=== PATIENT | male | born 1980 | race African-American/Black ===

== ENCOUNTER 2021-08-29 00:07 | Emergency (ER) | payer MEDICAID ==
[~2021-08-29] VITALS: Ht 180.3 cm; Wt 75.7 kg
[2021-08-29] MEDS ORDERED: CLINDAMYCIN 900MG IV 50 ML IV ONE (02:30)
[2021-08-29] MEDS ORDERED: SODIUM CHLORIDE 0.9% 1,000 ML IV ONE (02:45)
[2021-08-29] MEDS ORDERED: KETOROLAC TROMETH 30 MG/ML 1ML VIAL IV ONE (04:00)
[2021-08-29 04:58] LABS: Basophils # (auto) 0.1 10 ^3/uL (0-0.2); Basophils % (auto) 0.6 % (0.0-2.0); Eosinophils # (auto) 0.2 10 ^3/uL (0-0.8); Eosinophils % (auto) 1.9 % (0.0-7.0); Hematocrit 36.6 % (41.0-53.0); Hemoglobin 12.1 g/dL (13.5-17.5); Lymphocytes # (auto) 1.9 10 ^3/uL (0.4-5.4); Lymphocytes % (auto) 17.1 % (10.0-50.0); Mean Corpuscular Hemoglobin 28.3 pg (28.0-32.0); Mean Corpuscular Hgb Conc. 33.1 g/dL (32.0-36.0); Mean Corpuscular Volume 85.4 fL (80.0-100.0); Monocytes % (auto) 9.1 % (0.0-12.0); Neutrophils % (auto) 71.3 % (37.0-80.0); Nucleated Red Blood Cells % 0.1 %; Red Blood Cells 4.28 10^6/uL (4.5-5.90); Red Cell Distribution Width 13.5 % (11.8-14.3); White Blood Cell 11.2 10^3/uL (4.4-10.8)
[2021-08-29 05:15] LABS: INR 1.04 (0.9-1.15)
[2021-08-29 05:19] LABS: Albumin 3.3 g/dL (3.4-5.0); BUN/Creatinine Ratio 11.6; Calcium 8.1 mg/dL (8.5-10.1); Potassium 4.2 mmol/L (3.5-5.1)
[2021-08-29 05:22] LABS: Bilirubin, Total 0.8 mg/dL (0.2-1.0); Total Protein 6.7 g/dL (6.4-8.2)
[2021-08-29] MEDS ORDERED: NICOTINE 14 MG/24HR TOPICAL PATCH TD ONE (10:30)
[2021-08-29 10:43] VITALS: BP 129/89
== END 2021-08-29 10:44 | disposition left against medical advice (07) ==
LOC: ER 00:07
DX: S02.2XXA Fracture of nasal bones, initial encounter for closed fracture (principal); L03.211 Cellulitis of face; R94.31 Abnormal electrocardiogram [ECG] [EKG]; Z20.822 Contact with and (suspected) exposure to COVID-19; X58.XXXA Exposure to other specified factors, initial encounter; Y93.89 Activity, other specified; Y92.89 Other specified places as the place of occurrence of the external cause; Y99.8 Other external cause status
CPT/HCPCS: 36415; 70486; 71045; 80053; 83605; 85025; 85610; 87426; 93005; 96365; 96375; 99285; J1885; J3490; J7030